=== PATIENT | female | born 2000 | race Caucasian/White ===

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

== ENCOUNTER → 2021-03-19 | Outpatient (CLI) | payer OTHER ==
[2021-03-19 18:01] LABS: BASO % 0.5 % (0.0-1.0); EOS % 0.5 % (1.0-4.0); HEMATOCRIT 44.3 % (37.0-47.0); LYMPH % 29.3 % (27.0-41.0); MEAN CELL VOLUME 93.7 fl (81.0-99.0); MEAN CORPUSCULAR HGB 30.7 pg (27.0-31.0); MEAN CORPUSCULAR HGB CONC 32.7 g/dl (33.0-37.0); MEAN PLATELET VOLUME 12.6 fl (9.6-12.3); MONO # 0.4 10*3/uL (0.1-1.0); NEUT # 4.2 10*3/uL (2.3-7.9); NEUT % 63.5 % (47.0-73.0); PLATELET COUNT AUTOMATED 149 10*3/uL (130-400); RED BLOOD COUNT 4.73 10*6/uL (4.10-5.10); RED CELL DISTRI WIDTH 12.2 % (0-14.5); RETICULOCYTE % 1.23 % (0.50-2.50); WHITE BLOOD COUNT 6.7 10*3/uL (4.8-10.8)
[2021-03-19 18:03] LABS: BILIRUBIN Negative (Negative); BLOOD 1+ (Negative); CLARITY Turbid (Clear); COLOR Yellow (Yellow); GLUCOSE Negative (Negative); KETONE Trace (Negative); LEUKO ESTERASE 2+ (Negative); NITRITE Negative (Negative); SPECIFIC GRAVITY 1.025 (1.001-1.030)
[2021-03-19 18:21] LABS: BACTERIA 3+; EPITHELIAL CELLS 51-100; WBC 51-100 wbc/hpf (0-5)
[2021-03-19 18:23] LABS: ALBUMIN 4.1 gm/dl (3.1-4.5); ALKALINE PHOSPHATASE 98 U/L (45-117); BUN 8 mg/dl (7-24); CHLORIDE 106 mmol/L (98-107); CHOLESTEROL 179 mg/dL (<200); CREATININE 0.75 mg/dL (0.55-1.02); GAMMA GLUTAMYL TRANSPEPTIDASE 14 U/L (5-55); HDL CHOLESTEROL 47 mg/dl (40-60); IRON 56 ug/dL (50-170); LDL CHOLESTEROL 101 mg/dL (9-159); POTASSIUM 3.7 mmol/L (3.5-5.1); SGOT/AST 11 IU/L (3-35); SGPT/ALT 20 U/L (12-78); SODIUM 138 mmol/L (136-145); TOTAL IRON BINDING CAPACITY 282 ug/dl (250-450); TOTAL PROTEIN 7.5 gm/dL (6.4-8.2); TRIGLYCERIDES 156 mg/dl (<150); VLDL CHOLESTEROL 31 mg/dL (6-40)
[2021-03-19 18:49] LABS: FERRITIN 30.9 ng/mL (10.0-291.0); VITAMIN D, 25-HYDROXY 30.5 ng/mL (30-100)
== END | disposition home or self-care (01) ==
LOC: LAB 17:19
PROVIDERS: ATTEND Family Medicine
DX: R53.83 Other fatigue (principal); R79.89 Other specified abnormal findings of blood chemistry; R74.8 Abnormal levels of other serum enzymes; E55.9 Vitamin D deficiency, unspecified

== ENCOUNTER 2021-11-29 17:15 | Emergency (ER) | payer OTHER ==
[~2021-11-29] VITALS: Wt 102.1 kg
[2021-11-29 18:14] LABS: BASO % 0.4 % (0.0-1.0); EOS % 0.4 % (1.0-4.0); HEMATOCRIT 41.2 % (37.0-47.0); LYMPH # 1.5 10*3/uL (1.3-4.4); LYMPH % 18.3 % (27.0-41.0); MEAN CELL VOLUME 91.8 fl (81.0-99.0); MEAN CORPUSCULAR HGB 30.7 pg (27.0-31.0); MEAN CORPUSCULAR HGB CONC 33.5 g/dl (33.0-37.0); MEAN PLATELET VOLUME 12.3 fl (9.6-12.3); MONO # 0.5 10*3/uL (0.1-1.0); MONO % 6.5 % (3.0-9.0); NEUT # 6.1 10*3/uL (2.3-7.9); NEUT % 74.2 % (47.0-73.0); PLATELET COUNT AUTOMATED 153 10*3/uL (130-400); RED BLOOD COUNT 4.49 10*6/uL (4.10-5.10); RED CELL DISTRI WIDTH 12.3 % (0-14.5); WHITE BLOOD COUNT 8.3 10*3/uL (4.8-10.8)
[2021-11-29 18:29] LABS: BUN 11 mg/dl (7-24); CHLORIDE 108 mmol/L (98-107); CREATININE 0.68 mg/dL (0.55-1.02); POTASSIUM 3.9 mmol/L (3.5-5.1); SODIUM 137 mmol/L (136-145)
== END 2021-11-29 20:29 | disposition home or self-care (01) ==
LOC: ED 17:15
PROVIDERS: Emergency Medicine
DX: O20.8 Other hemorrhage in early pregnancy (principal); Z3A.01 Less than 8 weeks gestation of pregnancy; Z79.899 Other long term (current) drug therapy